=== PATIENT | female | born 1955 | race Caucasian/White ===

== ENCOUNTER 2020-09-19 15:03 | Emergency (ER) | payer MEDICARE, OTHER ==
[~2020-09-19] VITALS: Ht 160 cm; Wt 132.2 kg
[2020-09-19] MEDS ORDERED: KEPPRA500 MG PO (16:17)
[2020-09-19] MEDS ORDERED: LOSARTAN POTAS100 MG PO (16:17)
[2020-09-19] MEDS ORDERED: LASIX10 MG/ML PO (16:17)
[2020-09-19] MEDS ORDERED: ALBUTEROL/IPRATROPIUM 3 ML NEB NEB ONE (18:00)
[2020-09-19] MEDS ORDERED: ALBUTEROL/IPRATROPIUM 3 ML NEB ONE (18:06)
[2020-09-19] MEDS ORDERED: ZITHROMAX250 MG PO (18:43)
[2020-09-19] MEDS ORDERED: FLUCONAZOLE100 MG PO (18:45)
[2020-09-19] MEDS ORDERED: PREDNISONE50 MG PO (18:46)
[2020-09-19 18:59] VITALS: BP 126/73
[2020-09-19] MEDS ORDERED: AZITHROMYCIN 250 MG TAB ONE (18:59)
[2020-09-19] MEDS ORDERED: PREDNISONE 20 MG TAB ONE (18:59)
[2020-09-19] MEDS ORDERED: PREDNISONE 20 MG TAB PO ONE (19:00)
[2020-09-19] MEDS ORDERED: AZITHROMYCIN 250 MG TAB PO ONE (19:00)
== END 2020-09-19 18:58 | disposition home or self-care (01) ==
LOC: FSED 15:44
DX: J44.0 Chronic obstructive pulmonary disease with (acute) lower respiratory infection (principal); I10 Essential (primary) hypertension; R94.31 Abnormal electrocardiogram [ECG] [EKG]; Z11.52 Encounter for screening for COVID-19
CPT/HCPCS: 71046; 80048; 83518; 85025; 85379; 87400; 93005; 99284; J7512; U0002

== ENCOUNTER 2024-08-31 05:19 | Emergency (ER) | payer MEDICARE, OTHER ==
[~2024-08-31] VITALS: Ht 160 cm; Wt 113.4 kg
[~2024-08-31 05:19] MED LIST: FLUCONAZOLE100 MG PO; KEPPRA500 MG PO; LASIX10 MG/ML PO; LOSARTAN POTAS100 MG PO; PREDNISONE50 MG PO; ZITHROMAX250 MG PO
[2024-08-31 05:26] VITALS: PULSE 80; RESP 19; TEMP 97.7
[2024-08-31] MEDS ORDERED: PREDNISONE 20 MG TAB ONE (05:33)
[2024-08-31] MEDS: KETOROLAC TROMETHAMINE 60 MG/2 ML VIAL IM STA (05:37)
[2024-08-31] MEDS: PREDNISONE 20 MG TAB PO STA (05:39)
[2024-08-31 06:53] LABS: BILIRUBIN,URINE NEGATIVE (NEGATIVE); CLARITY,URINE CLOUDY (CLEAR); COLOR,URINE YELLOW (YELLOW); GLUCOSE, URINE NEGATIVE (NEGATIVE); KETONES,URINE NEGATIVE (NEGATIVE); LEUKOCYTE ESTERASE ,URINE TRACE (NEGATIVE); NITRITE,URINE POSITIVE (NEGATIVE); PH,URINE 7 (5 - 7); PROTEIN,URINE DIPSTICK NEGATIVE (NEGATIVE); URINE UROBILINOGEN 0.2 mg/dL (0.2 - 1)
[2024-08-31 06:54] LABS: BACTERIA,URINE MANY /HPF; EPITHELIAL CELLS,URINE MODERATE /LPF; RBC,URINE 0-5 /HPF (0-5)
[2024-08-31] MEDS ORDERED: PREDNISONE20 MG PO (07:36)
[2024-08-31] MEDS ORDERED: DICYCLOMINE HCL10 MG PO (07:36)
[2024-08-31] MEDS ORDERED: CEFDINIR300 MG PO (07:36)
[2024-08-31] MEDS: DICYCLOMINE HCL 20 MG/2 ML VIAL IM ONE (08:23)
[2024-08-31 08:36] VITALS: BP 132/88; PULSE 88; RESP 18; TEMP 98.2; O2SAT 98
[2024-08-31] MEDS ORDERED: FLUCONAZOLE150 MG PO (08:48)
== END 2024-08-31 08:48 | disposition home or self-care (01) ==
LOC: ER 05:32
DX: M54.32 Sciatica, left side (principal); N39.0 Urinary tract infection, site not specified; I10 Essential (primary) hypertension; J44.9 Chronic obstructive pulmonary disease, unspecified; G40.909 Epilepsy, unspecified, not intractable, without status epilepticus; Z85.3 Personal history of malignant neoplasm of breast; Z87.19 Personal history of other diseases of the digestive system
CPT/HCPCS: 74176; 81001; 99284; J0500; J1885; J7512